=== PATIENT | male | born 1990 | race Two or more races ===

== ENCOUNTER 2024-06-24 13:49 | Emergency (ER) | payer OTHER ==
[2024-06-24 13:58] VITALS: BP 124/74; PULSE 81; RESP 18; TEMP 98.1; BMI 27.1
[2024-06-24] MEDS ORDERED: IBUPROFEN 400 MG TABLET (FP) PO ONE (15:37)
[2024-06-24] MEDS: IBUPROFEN 400 MG TABLET (FP) PO ONE (15:40)
== END 2024-06-24 15:43 | disposition home or self-care (01) ==
LOC: JERFT 13:49
DX: M25.511 Pain in right shoulder (principal); R53.1 Weakness; M79.601 Pain in right arm
CPT/HCPCS: 73030-TC-RT-FY; 99283-25